=== PATIENT | male | born 1990 | race Caucasian/White ===

== ENCOUNTER 2025-04-08 09:25 | Emergency (ER) | payer OTHER ==
[~2025-04-08] VITALS: Ht 180.3 cm; Wt 91.8 kg
[2025-04-08 09:35] VITALS: TEMP 97.8
[2025-04-08 10:09] LABS: BASOPHILS % (AUTO) 0.2 % (0-1); EOSINOPHILS # (AUTO) 0.1 X10'3 (0-0.9); EOSINOPHILS % (AUTO) 0.5 % (0-6); HEMATOCRIT 56.2 % (42.0-52.0); LYMPHOCYTES # (AUTO) 1.7 X10'3 (1.1-4.8); LYMPHOCYTES % (AUTO) 11.3 % (21-51); MEAN CORPUSCULAR HEMOGLOBIN 28.5 PG (27.0-31.0); MEAN CORPUSCULAR HGB CONC 34.2 g/dL (33.0-36.5); MEAN CORPUSCULAR VOLUME 83.2 FL (78-98); MEAN PLATELET VOLUME 9.1 FL (7.4-10.4); MONOCYTES # (AUTO) 1.1 X10'3 (0-0.9); MONOCYTES % (AUTO) 7.5 % (2-12); NEUTROPHILS # (AUTO) 12.2 X10'3 (1.8-7.7); NEUTROPHILS % (AUTO) 80.5 % (42-75); PLATELET COUNT 314 X10'3 (140-440); RED BLOOD COUNT 6.75 X10'6 (4.70-6.10); RED CELL DISTRIBUTION WIDTH 13.1 % (11.5-14.5); WHITE BLOOD COUNT 15.1 X10'3 (4.5-11.0)
[2025-04-08 10:27] LABS: ALANINE AMINOTRANSFERASE 26 U/L (12-78); ALKALINE PHOSPHATASE 77 IU/L (46-116); ANION GAP 17 (8-16); ASPARTATE AMINO TRANSFERASE 17 U/L (10-37); BILIRUBIN,TOTAL 1.5 MG/DL (0.1-1.0); BLOOD UREA NITROGEN 17 MG/DL (7-18); BUN/CREATININE RATIO 19.3 (10.0-20.0); CHLORIDE 97 MMOL/L (99-107); CREATININE 0.88 MG/DL (0.60-1.10); GLUCOSE 368 MG/DL (70-104); HEMOGLOBIN 19.2 g/dl (14.0-17.9); LIPASE 44 U/L (16-77); POTASSIUM 3.6 MMOL/L (3.5-5.1); SODIUM 134 MMOL/L (135-145); TOTAL CARBON DIOXIDE 19.8 MMOL/L (24-32); eCRCL 125 ML/MIN; eGFR > 90 ML/MIN
--- NOTE | 2025-04-08 10:32 | Physician Documentation ---
History of Present Illness Chief Complaint: Abdominal Pain Stated Complaint: STOMACH PAIN/VOMITING Time Seen by MD: 09:41 HPI 35-year-old male presents to the ED with a complaint of three days of nausea vomiting and abdominal pain. Patient states that he has a known type 2 diabetic in his supposed to be taking metformin 1000 mg twice daily. Number he has not been taking his medication for the last three months. does Not have a reason for this. He has any recent fevers reports a midepigastric pain. Denies having any history of gastroparesis Day of Onset: April 08, 2025 Medication Reconciliation Allergies: Coded Allergies: No Known Allergies (Unverified , 04/08/25) Scheduled Metformin HCl (Metformin HCl), 1 TAB PO Q12H Review of Systems All Other Systems at this time: Reviewed and Negative ROS As stated above in the HPI, otherwise all systems are reviewed and negative. Physical Exam Vital Signs: Temperature: 97.8, Source: Temporal, Heart Rate: 80, Respiratory Rate: 16, BP: 152/108, Pulse Oximetry: 100, Weight: 91.800 Physical Exam General: Alert, no apparent distress. GI: [id number] mid epigastric Respiratory: Lungs clear, no respiratory distress. Cardiovascular: Regular rate and rhythm, no murmurs. Neurologic: Oriented x4. Psychiatric: Normal mood and affect. Skin: Normal color, warm and dry. No edema, no ecchymosis. Progress Results/Orders Results/Orders Completed Orders - RORY ELLIOTT CHECK WRITER Normal Saline 1000ml (Sodium Chloride 10 (04/08/25 10:20) Metoclopramide Inj (Reglan Inj) (04/08/25 10:25) Diphenhydramine Inj (Benadryl Inj.) (04/08/25 10:25) Ondansetron Inj. (Zofran 4mg/2ml Vial) (04/08/25 10:25) Vital Signs 04/08/25 04/08/25 09:35 09:59 Temp 97.8 Pulse 64 80 Resp 18 16 B/P (MAP) 182/108 152/108 (123) Pulse Ox 97 100 Laboratory Tests Test 04/08/25 09:40 04/08/25 09:52 Glucometer 441 *H White Blood Count 15.1 H Red Blood Count 6.75 H Hemoglobin 19.2 *H Hematocrit 56.2 H Mean Corpuscular Volume 83.2 Mean Corpuscular Hemoglobin 28.5 Mean Corpuscular Hemoglobin Concent 34.2 Red Cell Distribution Width 13.1 Platelet Count 314 Mean Platelet Volume 9.1 Neutrophils (%) (Auto) 80.5 H Lymphocytes (%) (Auto) 11.3 L Monocytes (%) (Auto) 7.5 Eosinophils (%) (Auto) 0.5 Basophils (%) (Auto) 0.2 Neutrophils # (Auto) 12.2 H Lymphocytes # (Auto) 1.7 Monocytes # (Auto) 1.1 H Eosinophils # (Auto) 0.1 Basophils # (Auto) 0.0 CBC Comment Sodium Level 134 L Potassium Level 3.6 Chloride Level 97 L Carbon Dioxide Level 19.8 L Anion Gap 17 H Blood Urea Nitrogen 17 Creatinine 0.88 Estimated GFR/1.73 m2 > 90 BUN/Creatinine Ratio 19.3 Glucose Level 368 H Calcium Level 9.0 Total Bilirubin 1.5 H Aspartate Amino Transf (AST/SGOT) 17 Alanine Aminotransferase (ALT/SGPT) 26 Alkaline Phosphatase 77 Total Protein 8.0 Albumin 4.0 Globulin 4.0 Albumin/Globulin Ratio 1.0 L Lipase 44 Chemistry Comments Medical Decision Making Findings And was treated for unmanaged diabetes and suspected gastroparesis. After he received a multitude of medications including Reglan Benadryl Compazine Zofran and Haldol along with 2 L of fluid patient reported improved symptoms and his glucose came down to the 200s. Declared him safe for discharge and advised him to start taking his metformin as directed Differential Dx:Considerations: Include: AAA, Angina/MD, Aortic dissection, Appendicitis, Bowel obstruction, Cholangitis, Cholelithasis, Constipation, Diverticular disease, Esophageal rupture, Esophagitis, Gastritis/PUD, Gastroenteritis, GI hemorrhage, Hernia, Hepatitis, Inflammatory BD, Ischemic bowel, Pancreatitis, Porphyria, Testicular torsion, Trauma, intraabdominal, Urinary obstruction, Urinary tract infection, Urolithiasis, Other Departure Disposition: 01 HOME / SELF CARE / HOMELESS Impression: Primary Impression: Abdominal pain Additional Impression: Gastroparesis Condition: Improved Discharge Instructions: Gastroparesis Referrals: NO PRIMARY CARE PROVIDER (PCP) Prescriptions Metformin HCl (Metformin HCl) 1,000 Mg Tablet 1 TAB PO Q12H for 30 Days, #60 TAB 0 Refills Prov: RORY ELLIOTT CHECK WRITER 04/08/25 Education Educated: Patient Educated regarding: diagnosis Signature Scribe Signature: g Attestation: The note accurately reflects work and decisions made by me.Rory Rodrigues NP 18:18 RORY ELLIOTT NP April 08, 2025 10:32
[2025-04-08] MEDS: normal saline 1000ML IV soln IVB ONE ×2 (10:33→12:53)
[2025-04-08] MEDS: ondansetron/PF 4mg/2ml inj IV ONE (10:33)
[2025-04-08] MEDS: metoclopramide 5 mg/ml inj IV ONE (10:33)
[2025-04-08] MEDS: diphenhydrAMINE 50 mg/ml inj IV ONE (10:34)
[2025-04-08 10:49] LABS: BILIRUBIN,URINE NEGATIVE (Neg); CLARITY,URINE CLEAR (Clear); COLOR,URINE YELLOW (Yellow); GLUCOSE, URINE >=1000 mg/dl (Neg); KETONES,URINE >=80 mg/dl (Neg); LEUKOCYTE ESTERASE ,URINE NEGATIVE (Neg); NITRITES, URINE NEGATIVE (Neg); OCCULT BLOOD,URINE TRACE-INTACT (Neg); PROTEIN,URINE NEGATIVE (Neg); UROBILINOGEN,URINE 0.2 E.U/dL (0.2-1.0)
[2025-04-08 10:56] LABS: UA COLLECTION TYPE URINAL
[2025-04-08 10:57] LABS: BACTERIA,URINE NONE SEEN /HPF (Neg); RBC,URINE 0-2 /HPF (0-2); SQUAMOUS EPITHELIAL CELL,UR FEW /LPF (FEW); WBC,URINE 0-4 /HPF (0-4)
[2025-04-08] MEDS ORDERED: HYDROcodone/acetaminophen 10/325mg tab PO ONE (11:25)
[2025-04-08] MEDS ORDERED: METF-438 PO (11:34)
[2025-04-08] MEDS: insulin regular, human 10 units/0.1 ml syringe IV ONE (11:37)
[2025-04-08] MEDS: proCHLORperazine 10 MG/2 ml inj IV ONE (12:55)
[2025-04-08] MEDS: haloperidol lactate 5mg/ml inj IM ONE (12:57)
[2025-04-08 14:03] VITALS: BP 122/85; PULSE 99; RESP 15; O2SAT 96
== END 2025-04-08 13:57 | disposition home or self-care (01) ==
LOC: ER 09:25
DX: K31.84 Gastroparesis (principal); Z79.84 Long term (current) use of oral hypoglycemic drugs
CPT/HCPCS: 36415; 80053; 81001; 82948; 83690; 85025; 96361; 96372; 96374; 96375; 99284; J0780; J1200; J1630; J1815; J2405; J2765; J7030